=== PATIENT | female | born 1960 | race Caucasian/White ===

== ENCOUNTER 2024-04-27 00:43 | Emergency (ER) | payer OTHER ==
[2024-04-27] MEDS: Tranexamic Acid 1,000 MG/10 ML Vial TOP ONE (01:40)
== END 2024-04-27 02:05 | disposition home or self-care (01) ==
LOC: JP.ED 00:43
DX: R04.0 Epistaxis (principal); Z90.710 Acquired absence of both cervix and uterus; Z86.16 Personal history of COVID-19; Z79.899 Other long term (current) drug therapy
CPT/HCPCS: 30905; 99283-25